=== PATIENT | female | born 1990 ===

== ENCOUNTER 2020-05-10 14:00 | Inpatient (IN) | payer OTHER ==
[~2020-05-10] VITALS: Ht 162.6 cm; Wt 83.0 kg
[2020-05-18] MEDS ORDERED: PRENATABS RX T1 EACH PO (13:44)
[2020-05-18] MEDS ORDERED: FE C PLUS TABL1 EACH PO (13:45)
== END 2020-05-20 17:10 | disposition home or self-care (01) | DRG 807 ==
LOC: LDR 05-18 12:53 → OB/GYN 05-18 12:53
PROVIDERS: ADMIT Obstetrics & Gynecology; ATTEND Obstetrics & Gynecology
PROC: 10E0XZZ Delivery of Products of Conception, External Approach (ICD-10-PCS; principal; 2020-05-19)
PROC: 0W8NXZZ Division of Female Perineum, External Approach (ICD-10-PCS; 2020-05-19)
PROC: 4A1HXFZ Monitoring of Products of Conception, Cardiac Rhythm, External Approach (ICD-10-PCS; 2020-05-19)
PROC: 3E033VJ Introduction of Other Hormone into Peripheral Vein, Percutaneous Approach (ICD-10-PCS; 2020-05-19)
DX: O80 Encounter for full-term uncomplicated delivery (principal); Z37.0 Single live birth; Z3A.38 38 weeks gestation of pregnancy; Z20.828 Contact with and (suspected) exposure to other viral communicable diseases